=== PATIENT | female | born 1950 | race Caucasian/White ===

== ENCOUNTER 2016-08-07 23:55 | Emergency (ER) | payer MEDICARE, OTHER ==
[~2016-08-07 23:55] MED LIST: ACETAMINOPHEN PO; ACETAMINOPHEN500 M2 PO; AZULFIDINE PO; CARAFATE1 G PO; COLACE PO; DARVOCET-N 1001 TAB PO; FLEXERIL10 MG PO; IBUPROFEN PO; IRON PO; LORTAB 7.51 TAB DOB; MEDROL DOSE PAK; MEDROL PO; METHOTREXATE2.5 MG PO; MOBIC PO; NAPROSYN500 MG PO; NAPROXEN PO; PEXEVA PO; PHENERGAN25 M1 DOB; PLAQUENIL PO; PLAQUENIL200 MG PO; PREDNISONE10 MG PO; TOPROL XL PO; VICODIN 5/500 T1 TAB PO; VITAMIN D2000 UNI1 PO; VITAMIN D31000 UNIT PO; ZESTRIL5 MG PO
== END 2016-08-08 01:24 | disposition home or self-care (01) ==
LOC: CED 23:55
DX: L02.416 Cutaneous abscess of left lower limb (principal); J44.9 Chronic obstructive pulmonary disease, unspecified; Z87.442 Personal history of urinary calculi; Z90.710 Acquired absence of both cervix and uterus; Z98.51 Tubal ligation status; Z98.890 Other specified postprocedural states
CPT/HCPCS: 10060; 87070; 87077; 87186; 87205; 96374; 99283

== ENCOUNTER 2016-08-10 21:13 | Emergency (ER) | payer MEDICARE, OTHER | END 2016-08-10 21:15 | disposition home or self-care (01) | LOC: CFTX 21:13 | DX: Z48.00 Encounter for change or removal of nonsurgical wound dressing (principal); I10 Essential (primary) hypertension | CPT/HCPCS: 99281; 99282 ==

== ENCOUNTER → 2016-10-21 | Outpatient (CLI) | payer MEDICARE, OTHER ==
--- NOTE | ~2016-10-21 | MR18 ---
[facility] A Service of [facility] RADIOLOGY TEXT RESULTS PATIENT: MARTHA CHUNG LOCATION: [facility] : 48 UNIT #: [id number] AGE: [address]: Tanmay Colmenares II, MD SEX: F ORDER DR: [id number] [facility] [address] [place], [place] [address] [id number] O MR#: [id number] #: [id number] NAME: MARTHA CHUNG. : 1950 SEX: F STUDY DATE/TIME: 10/21/2016 8:10 UNIT: [facility] ROOM: STUDY DESCRIPTION: MR Brain Wo Contrast Attending Physician: Tanmay Colmenares II., M.D. Referring Physician: Tanmay Colmenares II., M.D. Ordering Physician: Tanmay Colmenares II., M.D. Primary Care Physician: Sheryl Cagle M.D. MRI CENTER REPORT This report is preliminary unless electronic signature is present. EXAM MRI of the brain without contrast dated 10/21/2016. COMPARISON None. HISTORY Chronic daily headaches for 5 years. FINDINGS Multisequence, multiplanar imaging of the brain was obtained without contrast. No acute stroke, space-occupying intracranial mass, mass effect, midline shift or hydrocephalus. Vascular flow voids of the major cerebral arteries and dural venous sinuses are not completely occluded in these thicker slices. Age-appropriate parenchymal volume loss is seen. There is mild asymmetrical prominent CSF noted in the left frontal region measuring 1.7 x 1.3 cm. It is probably an incidental asymmetrical prominence of CSF or a small, benign cyst like arachnoid cyst. It appears to extend towards the left sylvian fissure. No significant abnormality is noted in the basal ganglia, brainstem and cerebellar hemispheres. Nasal septum is deviated to the left. Paranasal sinuses and mastoid air cells are well aerated. Status post bilateral cataract surgery. Thick slices through the sella with the pituitary gland, pineal region and upper cervical spine are within normal limits. IMPRESSION 1. There is prominent CSF space noted in the left frontal region measuring 1.7 x 1.3 x 2.1 cm. It is probably a small arachnoid cyst or incidental asymmetrical prominence of CSF. It does not cause any significant mass effect or edema on the adjacent brain. It has a benign appearance. 2. Diffuse, age-appropriate parenchymal volume loss is seen. 3. No demonstrable acute intracranial abnormality. [facility]. [facility] A Service of [facility] RADIOLOGY TEXT RESULTS PATIENT: MARTHA CHUNG LOCATION: [facility] : 49 UNIT #: [id number] AGE: [address]: Tanmay Colmenares II, MD SEX: F ORDER DR: Dictated by... Rickie Goss M.D. THIS IS AN ELECTRONICALLY VERIFIED REPORT Rickie Goss M.D. at 10/23/2016 2:06 PM CPR/psc TD: 10/22/2016 01:58 JOB #: [id number] MRI CENTER REPORT Page 1 of 1 COPY
== END | disposition home or self-care (01) ==
LOC: CMRI 07:37
DX: R51 Headache (principal)
CPT/HCPCS: 70551